=== PATIENT | female | born 1950 | race Hispanic/Latino ===

== ENCOUNTER → 2018-02-05 | Outpatient (CLI) | payer OTHER, MEDICARE ==
[~2018-02-05] MED LIST: ALEN70TA47 PO; AMLO5TAB2 PO; ASPI-555 PO; BIMA12.5OS OU; CANA1TAB3 PO; CHOL100040 PO; CITA-106 PO; GLIP5TAB11 PO; INSLAN SQ; LISI-613 PO; METO50TA18 PO; MONT10TA24 PO; OMEP20TA25 PO; RANO10003 PO; ROSU20TA30 PO; TOLT2CAP21 PO
== END | disposition home or self-care (01) ==
LOC: OIH 08:07
PROVIDERS: ATTEND Internal Medicine Cardiovascular Disease
DX: I70.0 Atherosclerosis of aorta (principal)
CPT/HCPCS: 93306

== ENCOUNTER → 2018-02-08 | Outpatient (CLI) | payer OTHER, MEDICARE ==
[~2018-02-08] MED LIST changes: +REGADENOSON 0.4 MG/5 ML PF SYG IVP SCH
== END | disposition home or self-care (01) ==
LOC: SHCH 08:02
PROVIDERS: ATTEND Internal Medicine Cardiovascular Disease
DX: R06.02 Shortness of breath (principal); R07.9 Chest pain, unspecified
CPT/HCPCS: 78452; 93017; 96374; A9500 ×2; J2785

== ENCOUNTER 2018-02-28 05:51 | Day surgery (SDC) | payer OTHER, MEDICARE ==
[2018-02-26 12:54] LABS: BASOPHILS % (AUTO) 0.6 % (0.0-5.0); EOSINOPHILS % (AUTO) 2.7 % (0.0-8.0); LYMPHOCYTES % (AUTO) 36.5 % (21.0-51.0); MEAN CORPUSCULAR HEMOGLOBIN 28.8 pg (27.0-33.0); MEAN CORPUSCULAR HGB CONC 32.9 g/dL (32.0-36.0); MEAN CORPUSCULAR VOLUME 87.5 fL (79-99); MONOCYTES % (AUTO) 5.2 % (3.0-13.0); PLATELET COUNT (AUTO) 246 K/uL (130-400); RED BLOOD CELL COUNT(AUTO) 4.34 MIL/uL (4.00-5.50); RED CELL DISTRIBUTION WIDTH 13.8 % (11.0-15.5); WHITE BLOOD COUNT (AUTO) 7.9 K/uL (4.8-10.8)
[2018-02-26 12:59] LABS: APPEARANCE,URINE CLEAR (CLEAR); BILIRUBIN,URINE NEGATIVE (NEGATIVE); COLOR,URINE YELLOW (YELLOW); GLUCOSE, URINE (UA) >=1000 mg/dL (NEGATIVE); KETONES,URINE NEGATIVE (NEGATIVE); LEUKOCYTE ESTERASE ,URINE NEGATIVE (NEGATIVE); NITRATE,URINE NEGATIVE (NEGATIVE); OCCULT BLOOD,URINE TRACE-LYSED (NEGATIVE); PROTEIN,URINE NEGATIVE (NEGATIVE); UROBILINOGEN,URINE 0.2 mg/dL (0.2-1.0)
[2018-02-26 13:03] LABS: CREATININE 1.1 mg/dL (0.5-1.5); POTASSIUM 4.7 mmol/L (3.5-5.1)
[2018-02-26 13:12] LABS: INR 0.99 (0.85-1.15); PARTIAL THROMBOPLASTIN TIME 25.6 SEC (26.3-35.5); PROTHROMBIN TIME 10.4 SEC (9.6-11.6)
[2018-02-26 13:14] LABS: BACTERIA,URINE Rare /HPF (None Seen); SQUAMOUS EPITHELIAL CELL,UR Rare /HPF (0-2); WBC,URINE 0-1 /HPF (0-1)
[2018-02-26 13:17] VITALS: BP 124/65
[~2018-02-28] VITALS: Ht 157.5 cm; Wt 91.3 kg
[2018-02-28] VITALS (9 sets, daily range): BP systolic 115–139; BP diastolic 50–71
[~2018-02-28 05:51] MED LIST changes: -AMLO5TAB2 PO; -REGADENOSON 0.4 MG/5 ML PF SYG IVP SCH; +SODIUM CHLORIDE 0.9% 500ML 500 ML IV SCH
[2018-02-28] MEDS ORDERED: IOPAMIDOL-370 100 ML VIAL IV ONE (07:16)
[2018-02-28] MEDS ORDERED: NITROGLYCERIN 5 MG/ML 10 ML VIAL IV ONE (07:16)
[2018-02-28] MEDS ORDERED: LIDOCAINE HCL 2% 20ML ONE (07:17)
[2018-02-28] MEDS ORDERED: ISOVUE-370 50ML VIAL IV ONE (07:17)
[2018-02-28] MEDS ORDERED: BIVALIRUDIN 250 MG/VIAL IV ONE (07:18)
[2018-02-28] MEDS ORDERED: LABETALOL HCL 5 MG/ML 20ML VIAL IV ONE (07:52)
[2018-02-28] MEDS ORDERED: SODIUM CHLORIDE 0.9% 1000ML 1,000 ML IV SCH (08:17)
[2018-02-28] MEDS ORDERED: AMLO5TAB2 PO (08:23)
[2018-02-28] MEDS ORDERED: NITROGLYCERIN 0.4 MG SL TAB SL PRN (08:30)
[2018-02-28] MEDS ORDERED: GLUCAGON 1MG KIT 1 MG ML IM PRN (08:30)
[2018-02-28] MEDS ORDERED: HYDRALAZINE HCL 20 MG/ML VIAL IV PRN (08:30)
[2018-02-28] MEDS ORDERED: DEXTROSE 50%-WATER 50 ML DISP.SYRIN IV PRN (08:30)
[2018-02-28] MEDS ORDERED: METOPROLOL TARTRATE 1 MG/ML 5ML VIAL IV PRN (08:30)
[2018-02-28] MEDS ORDERED: INSULIN HUMULIN R 100 UNIT/ML 3ML SQ SCH (11:30)
== END 2018-02-28 12:50 | disposition home or self-care (01) ==
LOC: DAH 05:51
PROVIDERS: ATTEND Internal Medicine Cardiovascular Disease
DX: I25.119 Atherosclerotic heart disease of native coronary artery with unspecified angina pectoris (principal); I11.0 Hypertensive heart disease with heart failure; I50.32 Chronic diastolic (congestive) heart failure; R06.02 Shortness of breath; E78.5 Hyperlipidemia, unspecified; E11.9 Type 2 diabetes mellitus without complications; K21.9 Gastro-esophageal reflux disease without esophagitis; E66.01 Morbid (severe) obesity due to excess calories; M81.0 Age-related osteoporosis without current pathological fracture; Z79.899 Other long term (current) drug therapy; Z88.0 Allergy status to penicillin
CPT/HCPCS: 36415; 71045; 80048; 81001; 82948 ×2; 85025; 85610; 85730; 93005; 93458; A4606; C1760; C1894 ×2; J1644; J3490 ×3; Q9967 ×2; J0583

== ENCOUNTER → 2018-08-23 | Outpatient (CLI) | payer OTHER, MEDICARE ==
[~2018-08-23] MED LIST changes: +AMLO5TAB7 PO; -SODIUM CHLORIDE 0.9% 500ML 500 ML IV SCH
== END | disposition home or self-care (01) ==
LOC: SHCH 08:21
PROVIDERS: ATTEND Internal Medicine Cardiovascular Disease
DX: I87.2 Venous insufficiency (chronic) (peripheral) (principal); I73.9 Peripheral vascular disease, unspecified; K21.9 Gastro-esophageal reflux disease without esophagitis
CPT/HCPCS: 93970

== ENCOUNTER 2018-11-17 12:23 | Emergency (ER) | payer OTHER, MEDICARE ==
[~2018-11-17 12:23] MED LIST changes: +ALEN70TA10 PO; -ALEN70TA47 PO; -AMLO5TAB7 PO; +AMLO5TAB9 PO
[2018-11-17 14:04] LABS: BASOPHILS % (AUTO) 0.7 % (0.0-5.0); EOSINOPHILS % (AUTO) 2.2 % (0.0-8.0); HEMATOCRIT 35.7 % (36-48); MEAN CORPUSCULAR HEMOGLOBIN 31.5 pg (27.0-33.0); MEAN CORPUSCULAR HGB CONC 33.6 g/dL (32.0-36.0); MEAN CORPUSCULAR VOLUME 93.7 fL (79-99); NEUTROPHILS % (AUTO) 59.1 % (40.0-77.0); PLATELET COUNT (AUTO) 211 K/uL (130-400); RED BLOOD CELL COUNT(AUTO) 3.81 MIL/uL (4.00-5.50); RED CELL DISTRIBUTION WIDTH 13.9 % (11.0-15.5); WHITE BLOOD COUNT (AUTO) 5.8 K/uL (4.8-10.8)
[2018-11-17 14:12] LABS: CREATININE 1.1 mg/dL (0.5-1.5); POTASSIUM 4.1 mmol/L (3.5-5.1)
[2018-11-17 14:15] LABS: ALBUMIN 3.7 g/dL (3.5-5.0); BILIRUBIN,TOTAL 0.4 mg/dL (0.2-1.0); TOTAL PROTEIN, SERUM 7.8 g/dL (6.0-8.3)
== END 2018-11-17 14:27 | disposition home or self-care (01) ==
LOC: EDH 12:23
DX: I10 Essential (primary) hypertension (principal); E11.9 Type 2 diabetes mellitus without complications; E78.5 Hyperlipidemia, unspecified; Z98.890 Other specified postprocedural states; Z79.4 Long term (current) use of insulin
CPT/HCPCS: 36415; 80053; 84484; 85025; 93005

== ENCOUNTER → 2021-05-04 | Outpatient (CLI) | payer MEDICARE ==
[~2021-05-04] MED LIST changes: -ALEN70TA10 PO; +ALEN70TA80 PO; +AMLO-257 PO; -AMLO5TAB9 PO; -ASPI-555 PO; +ASPI-556 PO; -LISI-613 PO; +LISI20TA24 PO; -MONT10TA24 PO; +MONT10TA32 PO; -ROSU20TA30 PO; +ROSU20TA31 PO
[2021-05-04 10:34] LABS: CREATININE 1.2 mg/dL (0.5-1.5)
== END | disposition home or self-care (01) ==
LOC: LAB 09:37
PROVIDERS: ATTEND Otolaryngology Plastic Surgery within the Head & Neck
DX: H90.3 Sensorineural hearing loss, bilateral (principal)
CPT/HCPCS: 36415; 82565; 84520

== ENCOUNTER → 2021-05-10 | Outpatient (CLI) | payer MEDICARE ==
[~2021-05-10] MED LIST changes: +GADOTERATE MEGLUMINE 5 MMOL/10 ML VIAL IV ONE
== END | disposition home or self-care (01) ==
LOC: RAH 10:44
PROVIDERS: ATTEND Otolaryngology Plastic Surgery within the Head & Neck
DX: H90.3 Sensorineural hearing loss, bilateral (principal); I67.82 Cerebral ischemia
CPT/HCPCS: 70553 ×2; A9575

== ENCOUNTER → 2021-12-26 | Outpatient (CLI) | payer OTHER, MEDICARE ==
[~2021-12-26] MED LIST changes: -GADOTERATE MEGLUMINE 5 MMOL/10 ML VIAL IV ONE; +MONT-39 PO; -MONT10TA32 PO
== END | disposition home or self-care (01) ==
LOC: SHCH 10:29
PROVIDERS: ATTEND Internal Medicine Cardiovascular Disease
DX: I87.2 Venous insufficiency (chronic) (peripheral) (principal)
CPT/HCPCS: 93970

== ENCOUNTER → 2022-02-17 | Outpatient (CLI) | payer OTHER, MEDICARE ==
[~2022-02-17] MED LIST changes: +OMEP20TA20 PO; -OMEP20TA25 PO
[2022-02-17 12:52] LABS: CREATININE 1.2 mg/dL (0.5-1.5); POTASSIUM 5.1 mmol/L (3.5-5.1)
== END | disposition home or self-care (01) ==
LOC: LAB 10:00
PROVIDERS: ATTEND Internal Medicine Cardiovascular Disease
DX: I50.22 Chronic systolic (congestive) heart failure (principal)
CPT/HCPCS: 36415; 80048; 83880

== ENCOUNTER → 2022-07-19 | Outpatient (CLI) | payer OTHER, MEDICARE ==
[2022-07-19 12:39] LABS: CREATININE 1.3 mg/dL (0.5-1.5); POTASSIUM 5.6 mmol/L (3.5-5.1)
== END | disposition home or self-care (01) ==
LOC: LAB 09:14
PROVIDERS: ATTEND Internal Medicine Cardiovascular Disease
DX: I87.2 Venous insufficiency (chronic) (peripheral) (principal); E78.5 Hyperlipidemia, unspecified
CPT/HCPCS: 36415; 80048

== ENCOUNTER → 2023-01-05 | Outpatient (CLI) | payer OTHER, MEDICARE ==
[2023-01-05 14:06] LABS: CREATININE 1.4 mg/dL (0.5-1.5); POTASSIUM 5.7 mmol/L (3.5-5.1)
== END | disposition home or self-care (01) ==
LOC: LAB 09:13
PROVIDERS: ATTEND Internal Medicine Cardiovascular Disease
DX: I50.22 Chronic systolic (congestive) heart failure (principal)
CPT/HCPCS: 36415; 80048; 83880

== ENCOUNTER → 2023-03-16 | Outpatient (CLI) | payer OTHER, MEDICARE ==
[~2023-03-16] MED LIST changes: -ROSU20TA31 PO; +ROSU20TA73 PO
[2023-03-16 13:00] LABS: CREATININE 1.1 mg/dL (0.5-1.5); POTASSIUM 4.5 mmol/L (3.5-5.1)
== END | disposition home or self-care (01) ==
LOC: LAB 09:22
PROVIDERS: ATTEND Internal Medicine Cardiovascular Disease
DX: I50.22 Chronic systolic (congestive) heart failure (principal)
CPT/HCPCS: 36415; 80048; 83880

== ENCOUNTER 2023-03-22 11:21 | Emergency (ER) | payer OTHER, MEDICARE ==
[~2023-03-22] VITALS: Ht 157.5 cm; Wt 90.7 kg
[2023-03-22 11:28] VITALS: BP 119/55
== END 2023-03-22 11:53 | disposition left against medical advice (07) ==
LOC: EDH 11:21
DX: R53.1 Weakness (principal); Z53.21 Procedure and treatment not carried out due to patient leaving prior to being seen by health care provider
CPT/HCPCS: 99281

== ENCOUNTER → 2023-05-18 | Outpatient (CLI) | payer OTHER, MEDICARE ==
[2023-05-18 12:25] LABS: CREATININE 1.9 mg/dL (0.5-1.5); POTASSIUM 5.3 mmol/L (3.5-5.1)
== END | disposition home or self-care (01) ==
LOC: LAB 09:14
PROVIDERS: ATTEND Internal Medicine Cardiovascular Disease
DX: I50.33 Acute on chronic diastolic (congestive) heart failure (principal)
CPT/HCPCS: 36415; 80048; 83880

== ENCOUNTER → 2023-11-02 | Outpatient (CLI) | payer OTHER, MEDICARE ==
[~2023-11-02] MED LIST changes: -GLIP5TAB11 PO; +GLIP5TAB15 PO
[2023-11-02 12:58] LABS: CREATININE 1.2 mg/dL (0.5-1.5); POTASSIUM 4.4 mmol/L (3.5-5.1)
== END | disposition home or self-care (01) ==
LOC: LAB 09:35
PROVIDERS: ATTEND Internal Medicine Cardiovascular Disease
DX: I50.22 Chronic systolic (congestive) heart failure (principal)
CPT/HCPCS: 36415; 80048

== ENCOUNTER → 2023-12-07 | Outpatient (CLI) | payer OTHER, MEDICARE ==
[2023-12-07 12:44] LABS: CREATININE 1.4 mg/dL (0.5-1.5); POTASSIUM 4.7 mmol/L (3.5-5.1)
== END | disposition home or self-care (01) ==
LOC: LAB 09:18
PROVIDERS: ATTEND Internal Medicine Cardiovascular Disease
DX: I50.22 Chronic systolic (congestive) heart failure (principal)
CPT/HCPCS: 36415; 80048

== ENCOUNTER → 2024-01-29 | Outpatient (CLI) | payer OTHER, MEDICARE | END | disposition home or self-care (01) | LOC: SHCH 09:00 | PROVIDERS: ATTEND Internal Medicine Cardiovascular Disease | DX: I70.202 Unspecified atherosclerosis of native arteries of extremities, left leg (principal); I87.2 Venous insufficiency (chronic) (peripheral); I87.1 Compression of vein | CPT/HCPCS: 93925; 93970 ==

== ENCOUNTER → 2024-05-12 | Outpatient (CLI) | payer OTHER, MEDICARE ==
[2024-05-12 12:57] LABS: BASOPHILS # (AUTO) 0.02 K/uL (0.00-0.20); BASOPHILS % (AUTO) 0.3 % (0.0-5.0); HEMATOCRIT 33.5 % (36-48); IMMATURE GRANULOCYTE ABSOLUTE 0.01 K/uL (0-1); LYMPHOCYTES # (AUTO) 2.6 K/uL (1.0-4.8); LYMPHOCYTES % (AUTO) 39.6 % (21.0-51.0); MEAN CORPUSCULAR HEMOGLOBIN 28.9 pg (27.0-33.0); MEAN CORPUSCULAR HGB CONC 32.2 g/dL (32.0-36.0); MEAN CORPUSCULAR VOLUME 89.6 fL (79-99); MONOCYTES # (AUTO) 0.4 K/uL (0.1-1.0); MONOCYTES % (AUTO) 5.5 % (3.0-13.0); NEUTROPHILS # (AUTO) 3.4 K/uL (1.8-7.7); NEUTROPHILS % (AUTO) 51.4 % (40.0-77.0); PLATELET COUNT (AUTO) 262 K/uL (130-400); RED BLOOD CELL COUNT(AUTO) 3.74 MIL/uL (4.00-5.50); RED CELL DISTRIBUTION WIDTH 13.5 % (11.0-15.5); WHITE BLOOD COUNT (AUTO) 6.6 K/uL (4.8-10.8)
[2024-05-12 13:04] LABS: INR 1.01 (0.85-1.15); PROTHROMBIN TIME 10.9 SEC (9.6-11.6)
[2024-05-12 13:05] LABS: PARTIAL THROMBOPLASTIN TIME 25.5 SEC (26.3-35.5)
[2024-05-12 13:14] LABS: CREATININE 1.3 mg/dL (0.5-1.0)
== END | disposition home or self-care (01) ==
LOC: LAB 09:24
PROVIDERS: ATTEND Internal Medicine Cardiovascular Disease
DX: Z01.812 Encounter for preprocedural laboratory examination (principal); I87.1 Compression of vein; I11.0 Hypertensive heart disease with heart failure; I87.2 Venous insufficiency (chronic) (peripheral); I50.31 Acute diastolic (congestive) heart failure; E78.5 Hyperlipidemia, unspecified; I25.10 Atherosclerotic heart disease of native coronary artery without angina pectoris; E66.9 Obesity, unspecified; Z79.899 Other long term (current) drug therapy; F15.90 Other stimulant use, unspecified, uncomplicated; Z79.82 Long term (current) use of aspirin
CPT/HCPCS: 36415; 80048; 85025; 85610; 85730

== ENCOUNTER → 2024-10-21 | Outpatient (CLI) | payer OTHER, MEDICARE ==
[~2024-10-21] MED LIST changes: +IOHEXOL 350 MG/ML 100ML INFUS..BTL IV ONE; -ROSU20TA73 PO; +ROSU20TA98 PO
--- NOTE | 2024-10-21 14:48 | HMCIMG ---
CT ABDOMEN/PELVIS W/CONTRAST REASON: ABD PAIN COMPARISON: 02/24/2017. TECHNIQUE: Images are obtained from lung bases to the symphysis pubis following IV contrast, 100 cc Omnipaque [id number]. FINDINGS: Lung bases are clear. There are no focal liver lesions. There is a small cyst lateral midportion of the right kidney. Kidneys appear otherwise unremarkable with no mass, stone or hydronephrosis.. Spleen and pancreas appear unremarkable. There has been a previous cholecystectomy. Bowel loops appear unremarkable. This includes normal appearance of the appendix There is no evidence of free fluid or intraperitoneal air. There are no focal fluid collections. Aorta and retroperitoneum appear normal as do pelvic soft tissue structures. There is a stent in the left common and external iliac vein. The anterior abdominal wall is intact. Osseous structures appear unremarkable. IMPRESSION: 1. Negative postcontrast CT abdomen and pelvis. CT was performed with one or more following dose reduction techniques: automated exposure control, adjustment of the mA and kv according to patient's size, or use of a iterative reconstruction technique.
== END | disposition home or self-care (01) ==
LOC: RAH 09:24
PROVIDERS: ATTEND Internal Medicine
DX: N28.1 Cyst of kidney, acquired (principal); T82.897A Other specified complication of cardiac prosthetic devices, implants and grafts, initial encounter; R10.9 Unspecified abdominal pain; Z90.49 Acquired absence of other specified parts of digestive tract
CPT/HCPCS: 74177; Q9967

== ENCOUNTER → 2025-04-22 | Outpatient (CLI) | payer OTHER, MEDICAID ==
[~2025-04-22] MED LIST changes: -IOHEXOL 350 MG/ML 100ML INFUS..BTL IV ONE
--- NOTE | 2025-04-23 05:19 | HMCIMG ---
EXAM: CT Abdomen and Pelvis without IV contrast. CLINICAL HISTORY: Left lower quadrant pain. TECHNIQUE: Thin collimated axial CT images of the abdomen and pelvis were obtained with sagittal and coronal reformatted images also submitted. CT scan done according to ALARA (As Low As Reasonably Achievable). CONTRAST: None. COMPARISON: CT abdomen and pelvis with contrast dated 10/21/24. FINDINGS: A few tiny calcified left lower lobe nodules. Subcentimeter calcified left peribronchial lymph nodes. Severe coronary artery calcification. There is no focal abnormality appreciated within the liver, pancreas, spleen, adrenals, or kidneys. 2 cm right renal cortical cyst at the mid-pole. Post-cholecystectomy status. There is no obvious bowel wall thickening. Bowel loops are normal in caliber without evidence of obstruction or ileus. The appendix is normal. Diffuse uncomplicated colonic diverticulosis. There is no abnormality within the urinary bladder. Small right fat containing inguinal hernia. Small fat-containing right paramidline supraumbilical ventral wall hernia. Unremarkable reproductive organs. Multiple tiny phleboliths in the pelvis. Moderate calcific atheromatous plaques in the abdominal aorta. Endovascular stent in the left common iliac vein. No lymphadenopathy. No free fluid. There is no acute osseous abnormality. Moderate degenerative osseous changes. Bilateral chronic sacroiliitis. IMPRESSION: 1. No acute abdominal or pelvic abnormality. 2. Post-cholecystectomy status. 3. 2 cm right renal cortical cyst. 4. Diffuse uncomplicated colonic diverticulosis. 5. Small right inguinal hernia and right paramidline supraumbilical ventral hernia, both containing fat. 6. Left common iliac vein stent. 7. Bilateral chronic sacroiliitis. Recommend clinical and laboratory correlation for inflammatory arthritis. No gross interval changes. /[place]
== END | disposition home or self-care (01) ==
LOC: RAH 09:00
PROVIDERS: ATTEND Internal Medicine Gastroenterology
DX: N28.1 Cyst of kidney, acquired (principal); K40.90 Unilateral inguinal hernia, without obstruction or gangrene, not specified as recurrent; K57.30 Diverticulosis of large intestine without perforation or abscess without bleeding; R10.32 Left lower quadrant pain; K43.9 Ventral hernia without obstruction or gangrene; M46.1 Sacroiliitis, not elsewhere classified
CPT/HCPCS: 74176